=== PATIENT | female | born 1930 | race Caucasian/White ===

== ENCOUNTER 2016-07-06 10:04 | Inpatient (IN) | payer MEDICARE ==
[~2016-07-06] VITALS: Ht 160 cm; Wt 65.6 kg
[2016-07-06] MEDS ORDERED: EZET10TA3 PO (10:45)
[2016-07-06] MEDS ORDERED: LISI-170 PO (10:45)
[2016-07-06] MEDS ORDERED: RANI150T4 PO (10:45)
[2016-07-06] MEDS ORDERED: ASPI-496 PO (10:45)
[2016-07-06] MEDS ORDERED: CARV12.52 PO (10:45)
[2016-07-06] MEDS ORDERED: LOVA40TA2 PO (10:45)
[2016-07-06] MEDS ORDERED: ASPIRIN 81 MG TABLET CHEW PO ONE (11:00)
[2016-07-06] MEDS ORDERED: SODIUM CHLORIDE FLUSH 10ML SYR IVF ONE (11:00)
[2016-07-06] MEDS ORDERED: ASPIRIN 81 MG TABLET CHEW ONE (11:07)
[2016-07-06 11:24] LABS: ASPARTATE AMINO TRANSFERASE 10 U/L (15-37); BLOOD UREA NITROGEN 22 mg/dL (7-18)
[2016-07-06 11:34] LABS: IS PT STATUS REG ER OR PRE ER? YES
[2016-07-06] MEDS ORDERED: NITROGLYCERIN OINT 2%, 1GM TP ONE ×2 (11:53→12:00)
[2016-07-06 13:45] VITALS: BP 161/75
[2016-07-06] MEDS ORDERED: ONDANSETRON ODT 4 MG PO PRN (14:30)
[2016-07-06] MEDS ORDERED: LABETALOL 5MG/ML, 20ML IVPush PRN (14:30)
[2016-07-06] MEDS ORDERED: HYDROcodone/APAP 5/325 TABLET PO PRN (14:30)
[2016-07-06] MEDS ORDERED: ENOXAPARIN 40 MG/0.4 ML SQ SCH (14:30)
[2016-07-06] MEDS ORDERED: ONDANSETRON 2MG/ML, 2ML IVPush PRN (14:30)
[2016-07-06 14:40] VITALS: BP 164/64
[2016-07-06 16:08] LABS: IS PT STATUS REG ER OR PRE ER? NO
[2016-07-06] MEDS ORDERED: OMNIPAQUE 350 MG/ML, 100ML BOTTLE ONE (19:21)
[2016-07-06 20:14] VITALS: BP 159/69
[2016-07-06] MEDS: CARVEDILOL 12.5 MG TABLET PO SCH (20:42)
[2016-07-06] MEDS ORDERED: LOVASTATIN 40 MG TABLET PO SCH (21:00)
[2016-07-06 21:37] LABS: IS PT STATUS REG ER OR PRE ER? NO
[2016-07-06] MEDS ORDERED: D5%-0.45% NACL 1,000 ML IV SCH ×2 (22:00)
[2016-07-07 02:29] VITALS: BP 137/69
[2016-07-07 06:39] LABS: ASPARTATE AMINO TRANSFERASE 13 U/L (15-37); BLOOD UREA NITROGEN 20 mg/dL (7-18)
[2016-07-07] MEDS ORDERED: REGADENOSON 0.4 MG/5 ML SYRINGE ONE (08:06)
[2016-07-07 08:18] VITALS: BP 163/66
[2016-07-07] MEDS ORDERED: EZETIMIBE 10 MG TABLET PO SCH (09:00)
[2016-07-07] MEDS ORDERED: ASPIRIN 81 MG TABLET EC PO SCH (09:00)
[2016-07-07] MEDS ORDERED: SENNA/DOCUSATE TABLET PO SCH (09:00)
[2016-07-07] MEDS ORDERED: LISINOPRIL 20 MG TABLET PO SCH (09:00)
[2016-07-07] MEDS: CARVEDILOL 12.5 MG TABLET PO SCH (10:55)
[2016-07-07 13:06] VITALS: BP 132/70
== END 2016-07-07 15:03 | disposition home or self-care (01) | DRG 303 ==
LOC: ED 11:45 → 5SO 11:47 → ED 12:07
DX: I25.10 Atherosclerotic heart disease of native coronary artery without angina pectoris (principal); I50.30 Unspecified diastolic (congestive) heart failure; R07.89 Other chest pain; E78.5 Hyperlipidemia, unspecified; I11.0 Hypertensive heart disease with heart failure; Z96.649 Presence of unspecified artificial hip joint; Z79.82 Long term (current) use of aspirin; Z80.3 Family history of malignant neoplasm of breast; Z82.49 Family history of ischemic heart disease and other diseases of the circulatory system; Z95.1 Presence of aortocoronary bypass graft; Z90.49 Acquired absence of other specified parts of digestive tract; Z90.722 Acquired absence of ovaries, bilateral; Z88.0 Allergy status to penicillin; Z88.2 Allergy status to sulfonamides; Z79.899 Other long term (current) drug therapy; Z87.81 Personal history of (healed) traumatic fracture
CPT/HCPCS: 36415; 71010; 71275; 78452; 80053; 83036; 83735; 84100; 84439; 84484; 85025; 85379; 85610; 93005; 93017; 93306; J1650; J2785; Q9967; A9502; C9898